=== PATIENT | male | born 1950 | race Caucasian/White ===

== ENCOUNTER 2020-05-06 09:59 | Outpatient (REF) | payer MEDICARE, SELFPAY ==
--- NOTE | 2020-05-06 | US_ITS ---
EXAMINATION: US VENOUS ULTRASOUND WITH DOPPLER LOWER EXTREMITY, LEFT CLINICAL INFORMATION: Follow-up DVT left lower extremity COMPARISON: None TECHNIQUE: Ultrasound of the deep veins is performed from the hip to the calf with compression sonography and color and pulse Doppler assessment. Spectral analysis with color-flow imaging is performed. FINDINGS: There is a nonocclusive thrombus in the distal femoral vein, popliteal vein, and proximal portions of the posterior tibial and peroneal veins of the calf. The more distal aspect of the posterior tibial veins and peroneal veins are patent. The common femoral vein, the proximal and midportion of the femoral vein are patent. US/US venous duplex LE LT IMPRESSION: Study POSITIVE for deep vein thrombosis. Occlusive thrombus in the distal femoral vein, popliteal vein, and the proximal posterior tibial and peroneal veins of the calf. This critical result was discussed with at 11:00 AM on 05/06/2020 and it was ascertained that the content and urgency of the report was understood at the time of direct communication.
== END 2020-05-06 10:00 | disposition home or self-care (01) ==
LOC: HO.HMGCX 09:59
DX: I82.412 Acute embolism and thrombosis of left femoral vein (principal); I82.432 Acute embolism and thrombosis of left popliteal vein; I82.442 Acute embolism and thrombosis of left tibial vein; I82.452 Acute embolism and thrombosis of left peroneal vein
CPT/HCPCS: 93971

== ENCOUNTER 2020-05-12 16:18 | Outpatient (REF) | payer MEDICARE, SELFPAY ==
--- NOTE | 2020-05-12 | XR_ITS ---
EXAMINATION: XR CHEST CLINICAL INFORMATION: Covid 19. Congestion. COMPARISON: None TECHNIQUE: 2 views of the chest were obtained. FINDINGS: Patchy bilateral multifocal airspace opacities in the lungs consistent with patient history of Covid 19. The heart size is enlarged. There is no significant central pulmonary vascular congestion. There is no significant pleural effusion XR/XR chest 2V IMPRESSION: Patchy bilateral multifocal airspace opacities
== END 2020-05-12 16:19 | disposition home or self-care (01) ==
LOC: HO.XRAY 16:18
DX: Z13.89 Encounter for screening for other disorder (principal)
CPT/HCPCS: 71046

== ENCOUNTER 2020-05-12 16:51 | Outpatient (REF) | payer MEDICARE, SELFPAY | END 2020-05-12 16:52 | disposition home or self-care (01) | LOC: HO.LAB 16:51 | PROVIDERS: Visit Provider Internal Medicine | DX: Z20.828 Contact with and (suspected) exposure to other viral communicable diseases (principal) | CPT/HCPCS: 71046; C9803; U0003 ==

== ENCOUNTER 2020-08-06 06:26 | Day surgery (SDC) | payer MEDICARE, SELFPAY ==
[2020-07-31 10:38] VITALS: BMI 33.8
--- NOTE | 2020-08-05 08:16 | HO.ANESPROP2 ---
Documented by User: Layla Nicole 08/05/20 08:21 HPI - Anesthesia Eval Consult details Narrative: 70yo M for Upper Endoscopy and Colonoscopy Eliquis for LLE DVT PMFSH Past Medical History Medical History Depression DVT (deep venous thrombosis) Elevated cholesterol GERD (gastroesophageal reflux disease) History of COVID-19 HTN (hypertension) Hx of irritable bowel syndrome On anticoagulant therapy Surgical History Surgical History H/O colonoscopy History of esophagogastroduodenoscopy (EGD) Hx of cholecystectomy Social History Social History Are you a primary child care development specialist to a significant other at home: No Do you presently have visiting nurse or other home services: No Smoking Status: Never smoker Use of substances other than those prescribed or required for medical reasons: No Advance Directives Information Provided: No Recently lost weight without trying: No Meds Allergies Allergy/AdvReac Type Severity Reaction Status Date / Time No Known Allergies Allergy Verified 07/30/20 14:56 Home Medications Medication Instructions Recorded Confirmed Last Taken Type apixaban [Eliquis] 1 tab PO BID 07/31/20 07/31/20 08/02/20 History dicyclomine 1 tab PO DAILY PRN 07/31/20 07/31/20 Unknown History diphenoxylate-atropine 1 tab PO QID PRN 07/31/20 07/31/20 Unknown History lisinopril 1 tab PO QPM 07/31/20 07/31/20 Unknown History metoprolol succinate 1 tab PO DAILY 07/31/20 07/31/20 08/06/20 History pantoprazole 1 tab PO QPM 07/31/20 07/31/20 Unknown History sertraline 1.5 tab PO BEDTIME 07/31/20 07/31/20 Unknown History simvastatin 1 tab PO DAILY 07/31/20 07/31/20 Unknown History Exam Exam Date and Time: August 05, 2020 0816 Height,Weight and Vital Signs: Height 5 ft 10 in Weight 107.048 kg Assessment and Plan Assessment Anesthesia Assessment: Chart Reviewed Documented by User: Zee Bianchi 08/06/20 07:24 [facility] Past Medical History Medical History Depression DVT (deep venous thrombosis) Elevated cholesterol GERD (gastroesophageal reflux disease) History of COVID-19 HTN (hypertension) Hx of irritable bowel syndrome On anticoagulant therapy Surgical History Surgical History H/O colonoscopy History of esophagogastroduodenoscopy (EGD) Hx of cholecystectomy Social History Social History Are you a primary child care development specialist to a significant other at home: No Do you presently have visiting nurse or other home services: No Smoking Status: Never smoker Use of substances other than those prescribed or required for medical reasons: No Advance Directives Information Provided: No Recently lost weight without trying: No Meds Allergies Allergy/AdvReac Type Severity Reaction Status Date / Time No Known Allergies Allergy Verified 07/30/20 14:56 Home Medications Medication Instructions Recorded Confirmed Last Taken Type apixaban [Eliquis] 1 tab PO BID 07/31/20 07/31/20 08/02/20 History dicyclomine 1 tab PO DAILY PRN 07/31/20 07/31/20 Unknown History diphenoxylate-atropine 1 tab PO QID PRN 07/31/20 07/31/20 Unknown History lisinopril 1 tab PO QPM 07/31/20 07/31/20 Unknown History metoprolol succinate 1 tab PO DAILY 07/31/20 07/31/20 08/06/20 History pantoprazole 1 tab PO QPM 07/31/20 07/31/20 Unknown History sertraline 1.5 tab PO BEDTIME 07/31/20 07/31/20 Unknown History simvastatin 1 tab PO DAILY 07/31/20 07/31/20 Unknown History Exam Airway Mallampati Class: II TM Dist: >3cm Neck ROM: Full Assessment and Plan Assessment Anesthesia Assessment: Anesthesia Plan Discussed and Chart Reviewed Final Anesthetic Review NPO: Yes ASA Class: II Final Preanesthetic Review: No Changes in Pt Med Stat, Meds/Allgs Chart Reviewed, Consent Obtained/Reviewed and Anes Risks/Benef Reviewed Patient Risk: Low Procedure Risk: Low Assessment/Block/Sedation in SS: Assess/Block/Sedation-SS Anesthetic Plan Anesthetic Plan: GA Disposition: Standard PACU
[2020-08-06 06:36] VITALS: BP 133/98; PULSE 104; RESP 18; O2SAT 98
[2020-08-06] MEDS: Lactated Ringers 1,000 ML 100 ML IVCONT (06:59)
[2020-08-06 08:33] VITALS: BP 86/59; PULSE 65; RESP 16; TEMP 36.3; O2SAT 99
--- NOTE | 2020-08-06 08:39 | PM.OP ---
Brief Operative Note Date of Service: 08/06/20 Pre-op diagnosis: GERD, Screening, Diarrhea Post-op diagnosis: other (Hiatal hernia, gastric polyps, colon polyps, gastritis) Procedure: EGD with biopsies, Colonoscopy to the cecum and TI with biopsies and biopsy/removal of polyps Surgeon: Shaan Rangel Anesthesia: MAC Estimated blood loss (mL): 4.0 Pathology: other (A. Descending duodenum B. Gastric antrum C. Gastric polyps D. EG Junction at 36cm E. Cecal polyps F. Ascending colon G. Descending colon) Condition: stable Disposition: PACU
[2020-08-06 08:48] VITALS: BP 114/73; PULSE 79; RESP 16; TEMP 36.3; O2SAT 97
--- NOTE | 2020-08-06 09:12 | OP_ITS ---
SURGEON: Shaan Rangel MD INDICATIONS: The patient presents for evaluation of gastroesophageal reflux, colorectal cancer screening, and intermittent diarrhea. Full consent has been obtained from him for both procedures, including risks of bleeding and perforation. PREOPERATIVE DIAGNOSIS: POSTOPERATIVE DIAGNOSIS: PROCEDURE PERFORMED: Esophagogastroduodenoscopy with biopsies, and colonoscopy to the cecum and terminal ileum with biopsy and removal of polyps, and biopsies. ESTIMATED BLOOD LOSS: COMPLICATIONS: ANESTHESIA: Monitored anesthesia care. ASSISTANTS: SPECIMENS: PREOPERATIVE DIAGNOSES: Gastroesophageal reflux, colorectal cancer screening and intermittent diarrhea. POSTOPERATIVE DIAGNOSES: Gastroesophageal reflux, colorectal cancer screening and intermittent diarrhea, hiatal hernia, gastritis, gastric polyps, rule out celiac disease, colon polyps, rule out microscopic colitis, diverticulosis, and internal hemorrhoids. DESCRIPTION OF PROCEDURE: The patient was placed in the left lateral decubitus position. The Olympus video gastroscope was passed in the posterior oropharynx and upper esophagus under direct vision. The scope was passed slowly into the distal esophagus. The gastroesophageal junction appeared at 36 cm. There was a very minimal irregularity consistent with reflux, but no evidence of esophagitis nor definitive evidence of Nelson's mucosa. There was a small hiatal hernia. The scope was advanced to pylorus and the duodenum was cannulated to the descending portion. The duodenum including the bulb was carefully inspected and appeared normal. The biopsies were obtained from the second and third portions of duodenum. The scope was withdrawn back in the stomach. The gastric antrum had some areas of erythema and edema, but no erosions or ulceration. There was good peristalsis. Biopsies were obtained. The scope was retroflexed visualizing the proximal stomach carefully which appeared normal, without any sign of mass or ulceration. There were several hyperplastic appearing gastric polyps. Several of these were biopsied. The scope was straightened out and withdrawn back in the esophagus. Biopsies were obtained at the EG junction at 36 cm. Proximal to this, the esophageal mucosa appeared normal. The scope was withdrawn from the patient. He was turned around for colonoscopy. The digital rectal exam revealed no abnormalities. The Olympus video pediatric colonoscope was entered into the rectum and advanced easily to the cecum. Once in the cecum, I did identify cecal pouch with appendiceal orifice and a normal-appearing ileocecal valve. The terminal ileum was cannulated and appeared normal. The scope was withdrawn back in the colon. The entire cecum was well visualized. There were 2 less than 5 mm polyps in the cecum, which were each biopsied and completely removed with cold biopsy forceps. The scope was then slowly withdrawn assessing all mucosal surfaces carefully. Preparation was excellent. I did not visualize any other polyps, colitis, nor angiodysplasia. Random biopsies were obtained in the ascending and descending colon. There was a moderate amount of sigmoid diverticulosis. In the rectum, scope was retroflexed visualizing internal hemorrhoids, but no other pathology. The rectal mucosa appeared normal. The scope was straightened out and withdrawn from the patient. He tolerated both procedures well and was returned to the recovery area in stable condition. IMPRESSION: 1. Hiatal hernia, gastroesophageal reflux. 2. Gastritis. 3. Gastric polyps. 4. Rule out celiac disease. 5. Colon polyps. 6. Rule out microscopic colitis. 7. Diverticulosis. 8. Internal hemorrhoids. PLAN: The results of biopsies will be checked. He was advised to continue his daily pantoprazole. He was on a twice a day, but I did advise him to decrease it as once a day. He will also continue his dicyclomine and Lomotil as needed for any intermittent symptoms of irritable bowel syndrome and loose stool. If the colon polyps are tubular adenoma, I would recommend a followup colonoscopy in 5 years. If they are only hyperplastic, I would recommend a followup colonoscopy in 10 years. Of note, he had also been advised to stop his metoclopramide when I had met him in the office as well. He was advised to resume his Eliquis tomorrow. He was advised not to use any aspirin and NSAIDs long-term since he is on the Eliquis. This has been discussed with his family. MD DANNI Cantu/DANNA / [id number]
== END 2020-08-06 09:37 | disposition home or self-care (01) ==
PROVIDERS: PCP Family Medicine; Visit Provider Internal Medicine
PROC: (CPT 45380; principal; 2020-08-06 07:30)
DX: Z12.11 Encounter for screening for malignant neoplasm of colon (principal); D12.0 Benign neoplasm of cecum; K57.30 Diverticulosis of large intestine without perforation or abscess without bleeding; K64.8 Other hemorrhoids; K58.9 Irritable bowel syndrome, unspecified; K21.9 Gastro-esophageal reflux disease without esophagitis; K29.50 Unspecified chronic gastritis without bleeding; K31.7 Polyp of stomach and duodenum; K44.9 Diaphragmatic hernia without obstruction or gangrene; I82.402 Acute embolism and thrombosis of unspecified deep veins of left lower extremity; Z79.02 Long term (current) use of antithrombotics/antiplatelets; I10 Essential (primary) hypertension; F41.9 Anxiety disorder, unspecified; Z79.899 Other long term (current) drug therapy; Z86.16 Personal history of COVID-19; Z90.49 Acquired absence of other specified parts of digestive tract
CPT/HCPCS: 45380; 43239; 88305; 88342; J3010

== ENCOUNTER 2020-12-15 10:32 | Outpatient (REF) | payer MEDICARE, SELFPAY ==
[2020-12-15 13:51] LABS: Alanine Aminotransferase 20 U/L (0-40); Anion Gap 12 (12-20); Blood Urea Nitrogen 34 mg/dL (9-16); Carbon Dioxide 24 mmol/L (22-29); Chloride 110 mmol/L (96-108); Cholesterol 142 mg/dL; Estimated Glomerular Filt Rate 53; HDL Cholesterol 46 mg/dL; LDL Cholesterol Calculated 84 mg/dl; Potassium 4.6 mmol/L (3.3-5.1); Sodium 141 mmol/L (135-145); Triglycerides 64 mg/dL
== END 2020-12-15 10:33 | disposition home or self-care (01) ==
LOC: HO.10HDL 10:32
PROVIDERS: Visit Provider Family Medicine
DX: I10 Essential (primary) hypertension (principal); E78.00 Pure hypercholesterolemia, unspecified; Z79.899 Other long term (current) drug therapy
CPT/HCPCS: 36415; 80051; 80061; 82550; 82565; 84460; 84520

== ENCOUNTER 2021-06-09 10:43 | Outpatient (REF) | payer MEDICARE, SELFPAY ==
[2021-06-09 14:16] LABS: Anion Gap 14 (12-20); Blood Urea Nitrogen 32 mg/dL (9-16); Carbon Dioxide 24 mmol/L (22-29); Chloride 108 mmol/L (96-108); Cholesterol 149 mg/dL; Estimated Glomerular Filt Rate 57; HDL Cholesterol 40 mg/dL; LDL Cholesterol Calculated 90 mg/dl; Potassium 4.5 mmol/L (3.3-5.1); Sodium 141 mmol/L (135-145); Triglycerides 96 mg/dL
[2021-06-09 14:39] LABS: Prostate Specific Antigen Scr 1.78 ng/mL (<0.05-4.0)
== END 2021-06-09 10:44 | disposition home or self-care (01) ==
LOC: HO.10HDL 10:43
PROVIDERS: Visit Provider Family Medicine
DX: Z12.5 Encounter for screening for malignant neoplasm of prostate (principal); I10 Essential (primary) hypertension; E78.00 Pure hypercholesterolemia, unspecified; N40.0 Benign prostatic hyperplasia without lower urinary tract symptoms; Z79.899 Other long term (current) drug therapy
CPT/HCPCS: 36415; 80051; 80061; 82565; 84153; 84520

== ENCOUNTER 2022-01-15 10:18 | Outpatient (REF) | payer MEDICARE, SELFPAY ==
[2022-01-15 11:46] LABS: Fibrinogen 560 MG/DL (259-690); INTERNATIONAL NORM RATIO 1.2 (0.9-1.1); Prothrombin Time 13.7 SEC (10.0-13.1)
[2022-01-15 11:49] LABS: Partial Thromboplastin Time 34.7 SEC (26.0-36.4)
[2022-01-15 12:27] LABS: Alanine Aminotransferase 20 U/L (0-40); Anion Gap 15 (12-20); Aspartate Amino Transferase 16 U/L (5-37); Blood Urea Nitrogen 26 mg/dL (9-16); Carbon Dioxide 23 mmol/L (22-29); Chloride 106 mmol/L (96-108); Estimated Glomerular Filt Rate > 60; Potassium 4.5 mmol/L (3.3-5.1); Sodium 139 mmol/L (135-145)
[2022-01-18 18:07] LABS: Anti-Thrombin III Antigen 81 % (80-120)
[2022-01-18 18:11] LABS: Homocysteine 11.6 umol/L (<11.4)
[2022-01-18 20:56] LABS: Protein C Activity 104 % (70-180); Protein S Activity rflx Tot&Fr 73 % (70-150)
[2022-01-27 17:07] LABS: Factor V Leiden POSITIVE
== END 2022-01-15 10:19 | disposition home or self-care (01) ==
LOC: HO.10HDL 10:18
PROVIDERS: Visit Provider Family Medicine
DX: I10 Essential (primary) hypertension (principal); E78.00 Pure hypercholesterolemia, unspecified; Z79.899 Other long term (current) drug therapy; I82.409 Acute embolism and thrombosis of unspecified deep veins of unspecified lower extremity
CPT/HCPCS: 80051; 81241; 82550; 82565; 83090; 84450; 84460; 84520; 85301; 85302; 85303; 85305; 85306; 85384; 85610; 85730; 86146; 86147; 86148

== ENCOUNTER 2022-07-14 10:30 | Outpatient (REF) | payer MEDICARE, SELFPAY ==
[2022-07-14 11:20] LABS: Basophils Percent Auto 0.6 % (0-2); Eosinophils Absolute Auto 0.1 X10*3/uL (0.0-0.4); Eosinophils Percent Auto 1.8 % (0-4); Hematocrit 46.8 % (42.0-52.0); Hemoglobin 15.5 g/dl (14.0-18.0); Imm Gran Abs Auto 0.08 X10*3/uL (0.00-0.03); Imm Gran Pct Auto 1.1 % (0.0-0.4); Lymphocytes Absolute Auto 1.1 X10*3/uL (1.2-4.9); Lymphocytes Percent Auto 14.8 % (20-40); MANUAL DIFF FLAG NO; Mean Corpuscular HGB Conc 33.1 g/dl (31.0-36.0); Mean Corpuscular Hemoglobin 30.8 pg (27.0-33.0); Mean Platelet Volume 9.5 fL (9.4-12.4); Monocytes Absolute Auto 0.6 X10*3/uL (0.1-1.2); Monocytes Percent Auto 8.7 % (2-11); Neutrophils Absolute Auto 5.2 x10*3/uL (2.0-8.3); Platelet Count 245 X10*3/uL (160-400); Red Blood Count 5.03 X10*6/uL (4.60-5.80); Red Cell Distribution Width 12.8 % (11.0-16.0); White Blood Count 7.1 X10*3/uL (4.8-10.8)
[2022-07-14 11:59] LABS: Alanine Aminotransferase 23 U/L (0-40); Anion Gap 10 (12-20); Aspartate Amino Transferase 17 U/L (5-37); Blood Urea Nitrogen 31 mg/dL (9-16); Carbon Dioxide 25 mmol/L (22-29); Chloride 111 mmol/L (96-108); Cholesterol 154 mg/dL; Estimated Glomerular Filt Rate 58; Potassium 4.4 mmol/L (3.3-5.1); Sodium 142 mmol/L (135-145)
== END 2022-07-14 10:31 | disposition home or self-care (01) ==
LOC: HO.10HDL 10:30
PROVIDERS: Visit Provider Family Medicine
DX: I10 Essential (primary) hypertension (principal); E78.00 Pure hypercholesterolemia, unspecified; Z79.899 Other long term (current) drug therapy
CPT/HCPCS: 36415; 80051; 82465; 82550; 82565; 84450; 84460; 84520; 85025

== ENCOUNTER 2022-12-29 11:47 | Outpatient (REF) | payer MEDICARE, SELFPAY ==
[2022-12-29 13:30] LABS: MANUAL DIFF FLAG NO
[2022-12-29 13:38] LABS: Basophils Percent Auto 0.4 % (0-2); Eosinophils Absolute Auto 0.1 X10*3/uL (0.0-0.4); Eosinophils Percent Auto 1.4 % (0-4); Hemoglobin 16.1 g/dl (14.0-18.0); Imm Gran Abs Auto 0.08 X10*3/uL (0.00-0.03); Lymphocytes Absolute Auto 1.2 X10*3/uL (1.2-4.9); Lymphocytes Percent Auto 14.3 % (20-40); Mean Corpuscular HGB Conc 32.9 g/dl (31.0-36.0); Mean Corpuscular Volume 94.2 fL (80.0-98.0); Mean Platelet Volume 9.8 fL (9.4-12.4); Monocytes Absolute Auto 0.7 X10*3/uL (0.1-1.2); Monocytes Percent Auto 8.3 % (2-11); Neutrophils Percent Auto 74.6 % (45-73); Platelet Count 251 X10*3/uL (160-400); Red Cell Distribution Width 12.8 % (11.0-16.0); White Blood Count 8.1 X10*3/uL (4.8-10.8)
[2022-12-29 13:46] LABS: Appearance Urine Clear; Color Urine Yellow; Glucose Urine UA Negative (Negative); Leukocyte Esterase Urine Negative (Negative); Nitrite Urine Negative (Negative); Urine Blood Negative (Negative); Urine Ketones Negative (Negative); Urine Protein Negative (Neg-Trace)
[2022-12-29 13:54] LABS: Alanine Aminotransferase 21 U/L (0-40); Albumin Level 4.3 g/dL (3.5-5.0); Alkaline Phosphatase 59 U/L (39-117); Anion Gap 12 (12-20); Aspartate Amino Transferase 14 U/L (5-37); Bilirubin Direct 0.2 mg/dL (0.0-0.5); Bilirubin Total 0.5 mg/dL (0.0-1.0); Blood Urea Nitrogen 32 mg/dL (9-16); Carbon Dioxide 26 mmol/L (22-29); Chloride 108 mmol/L (96-108); Estimated Glomerular Filt Rate > 60; Lipase 15 U/L (8-78); Potassium 4.3 mmol/L (3.3-5.1); Sodium 142 mmol/L (135-145); Total Protein 7.2 g/dL (6.5-8.0)
== END 2022-12-29 11:48 | disposition home or self-care (01) ==
LOC: HO.10HDL 11:47
PROVIDERS: Visit Provider Family Medicine
DX: R10.13 Epigastric pain (principal); I10 Essential (primary) hypertension; E78.00 Pure hypercholesterolemia, unspecified; Z79.899 Other long term (current) drug therapy
CPT/HCPCS: 36415; 80051; 80076; 81003; 82550; 82565; 83690; 84520; 85025

== ENCOUNTER 2023-07-12 09:47 | Outpatient (REF) | payer MEDICARE, SELFPAY ==
[2023-07-12 11:16] LABS: Alanine Aminotransferase 21 U/L (0-40); Anion Gap 12 (12-20); Aspartate Amino Transferase 14 U/L (5-37); Blood Urea Nitrogen 28 mg/dL (9-16); Carbon Dioxide 25 mmol/L (22-29); Chloride 108 mmol/L (96-108); Cholesterol 145 mg/dL (<200); Estimated Glomerular Filt Rate > 60; Glucose Fasting 99 mg/dL (60-99); HDL Cholesterol 40 mg/dL (>40); LDL Cholesterol Calculated 89 mg/dL (<100); Potassium 4.4 mmol/L (3.3-5.1); Sodium 141 mmol/L (135-145); Triglycerides 80 mg/dL (<150)
[2023-07-12 11:34] LABS: Free T4 (Free Thyroxine) 0.82 ng/dL (0.71-1.85); Thyroid Stimulating Hormone 4.85 uIU/mL (0.32-4.0)
== END 2023-07-12 09:48 | disposition home or self-care (01) ==
LOC: HO.10HDL 09:47
PROVIDERS: Visit Provider Family Medicine
DX: I10 Essential (primary) hypertension (principal); E78.00 Pure hypercholesterolemia, unspecified; E66.9 Obesity, unspecified; Z79.899 Other long term (current) drug therapy
CPT/HCPCS: 36415; 80051; 80061; 82550; 82565; 82947; 84439; 84443; 84450; 84460; 84520

== ENCOUNTER 2023-10-31 09:25 | Outpatient (REF) | payer MEDICARE, SELFPAY ==
[2023-10-31 11:42] LABS: Free T4 (Free Thyroxine) 0.86 ng/dL (0.71-1.85); Thyroid Stimulating Hormone 5.46 uIU/mL (0.32-4.0)
== END 2023-10-31 09:26 | disposition home or self-care (01) ==
LOC: HO.10HDL 09:25
PROVIDERS: Visit Provider Family Medicine
DX: E03.9 Hypothyroidism, unspecified (principal)
CPT/HCPCS: 36415; 84439; 84443

== ENCOUNTER 2023-12-05 11:19 | Outpatient (REF) | payer MEDICARE, SELFPAY ==
--- NOTE | ~2023-12-05 | US_ITS ---
EXAMINATION: US THYROID CLINICAL INFORMATION: New hypothyroid. COMPARISON: None available. TECHNIQUE: Linear transducer grayscale and color Doppler examination with attention to the region of the thyroid. FINDINGS: SIZE: Measurements of the thyroid lobes and nodules are given in sagittal, anteroposterior and transverse dimensions respectively. Right Thyroid Lobe: 3.6 x 4.3 x 1.3 cm, volume 3.6 mL. Parenchyma: The gland echotexture is heterogeneous. Thyroid vascularity is normal. Left Thyroid Lobe: 3.7 x 1.3 x 1.8 cm, volume 4.3 mL. Parenchyma: The gland echotexture is heterogeneous. Thyroid vascularity is normal. Isthmus: 0.7 cm in maximum AP dimension. There is a focal area of marked heterogeneity of the thyroid parenchyma in the region of the isthmus, however, discrete margins were not discerned to suggest a discrete thyroid nodule. No discrete, definitive thyroid nodules appreciated. NODES: No lymphadenopathy is seen in the tissue surrounding the thyroid gland. US/US thyroid IMPRESSION: There is a focal area of marked heterogeneity of the thyroid parenchyma in the region of the isthmus, however, discrete margins were not discerned to suggest a discrete thyroid nodule. No discrete, definitive thyroid nodules appreciated. ACR TI-RADS RECOMMENDATION REFERENCE: Ultrasound-guided fine-needle aspiration, followup ultrasound, no further follow up. * TR1 (0 point) and TR2 (2 points): No FNA or follow up. * TR3 (3 points): FNA if more than or equal to 2.5 cm in maximum dimension, followup ultrasound in 1, 3 and 5 years if 1.5 to 2.4 cm in maximum dimension. * TR4 (4-6 points): FNA if more than or equal to 1.5 cm in maximum dimension, followup ultrasound in 1, 2, 3 and 5 years if 1 to 1.4 cm in maximum dimension. * TR5 (more than or equal to 7 points): FNA if more than or equal to 1 cm in maximum dimension, followup ultrasound every year for 5 years if 0.5 to 0.9 cm in maximum dimension. * TR3, TR4 or TR5 nodules that are below the size threshold for followup receive no follow up.
== END 2023-12-05 11:20 | disposition home or self-care (01) ==
LOC: HO.US 11:19
PROVIDERS: PCP Family Medicine; Visit Provider Family Medicine
DX: E03.9 Hypothyroidism, unspecified (principal)
CPT/HCPCS: 76536

== ENCOUNTER 2023-12-23 10:25 | Outpatient (REF) | payer MEDICARE, SELFPAY ==
[2023-12-23 13:02] LABS: Free T4 (Free Thyroxine) 1.04 ng/dL (0.71-1.85); Thyroid Stimulating Hormone 3.69 uIU/mL (0.32-4.0)
[2023-12-24 06:59] LABS: Triiodothyronine T3 Total 92 ng/dL (76-181)
[2023-12-24 09:49] LABS: Thyroid Peroxidase Antibodies <1 IU/mL (<9)
== END 2023-12-23 10:26 | disposition home or self-care (01) ==
LOC: HO.LAB 10:25
PROVIDERS: PCP Family Medicine; Visit Provider Family Medicine
DX: E03.9 Hypothyroidism, unspecified (principal)
CPT/HCPCS: 36415; 84439; 84443; 84480; 86376

== ENCOUNTER 2024-01-31 09:09 | Outpatient (REF) | payer MEDICARE, SELFPAY ==
[2024-01-31 11:03] LABS: Alanine Aminotransferase 22 U/L (0-40); Anion Gap 11 (12-20); Aspartate Amino Transferase 13 U/L (5-37); Blood Urea Nitrogen 25 mg/dL (9-16); Carbon Dioxide 27 mmol/L (22-29); Chloride 106 mmol/L (96-108); Estimated Glomerular Filt Rate > 60; Potassium 4.2 mmol/L (3.3-5.1); Sodium 140 mmol/L (135-145)
[2024-01-31 11:23] LABS: Free T4 (Free Thyroxine) 0.84 ng/dL (0.71-1.85)
== END 2024-01-31 09:10 | disposition home or self-care (01) ==
LOC: HO.10HDL 09:09
PROVIDERS: Visit Provider Family Medicine
DX: E03.9 Hypothyroidism, unspecified (principal); I10 Essential (primary) hypertension; E78.00 Pure hypercholesterolemia, unspecified; Z79.899 Other long term (current) drug therapy
CPT/HCPCS: 36415; 80051; 82550; 82565; 84439; 84443; 84450; 84460; 84520

== ENCOUNTER 2024-10-16 09:59 | Outpatient (REF) | payer MEDICARE, SELFPAY ==
--- OUTSIDE RECORDS SUMMARY | 2024-10-16 10:40 | XMS_ITS | Patient Health Record ---
Author Organization [facility] Address [address] [place] [id number] Care Team Providers Care [employer] Name Role Phone Jonah FERNANDEZ, Adan Primary Care Provider Unavailab Shaan Velasquez [phone] Reason For Referral No Information Medications Medication SIG (Take, Route, Frequency, Duration) Notes Start Date End Date Status Pantoprazole Sodium 40 MG 1 tablet Orall y Once a day Active Simvastatin 80 MG 1 tablet in the even ing Orally Once a day for 30 day(s) Active Lisinopril 5 MG 1 tablet Orally Once a day for 30 day(s) Active Metoprolol Succinate ER 50 MG 1 tablet Orally Once a day for 30 day(s) Active Sertraline HCl 100 MG 1 and 1/2 tablet O rally Once a day Active Eliquis 5 MG as directed Orally bid Active Dicyclomine HCl 20 MG 1 tablet Orally 1 QD Active Diphenoxylate-Atropine 2.5-0.025 MG 1 tablet as needed Orally Four times a day Active Immunizations Vaccine Route Administration Date Status Comme nts Influenza Unknown 06/25/2020 Refused Social History Tobacco Use: Social History Observation Description Date Details (start date - stop date) Never Smoker NA - NA Tobacco Use/Smoking Question Answer Notes Patient is a nonsmoker Alcohol Screen Question Answer Notes Did you have a drink containing alcohol in the p ast year? No Points 0 Interpretation Negative Section Notes: Nonsmoker; very occasional o ne beer Problems Problem Type SNOMED Code ICD Code Onset Dates Problem Status W/U Status Risk Notes Problem Irritable bowel syndrome (18628598) Irritable bowel syndrome (K58.9) Active confirmed Problem Screening for malignant neoplasm of colon (710315410) Encounter for screening for malignant neoplasm of colon (Z12.11) Active confirmed Problem Gastroesophageal reflux disease (640996492) GERD (gastroesopha geal reflux disease) (K21.9) Active confirmed Plan Of Treatment Pending Test Test Name Order Date Pathology 08/06/2020 Future Test Test Name Order Date UPPER GI ENDOSCOPY 06/25/2020 COLONOSCOPY 06/25/2020 Insurance Providers Payer Name Payer Address Payer Phone Subscriber Number Group Number Insured Name Patient Relationship to Insured Coverage Start Date Coverage End Date [place] [address] [place] [phone] [id number] HENRIETTA YODER Self - patient is the insured [employer] ATTN CLAIMS [address] [place] [address] [id number] HENRIETTA YODER Self - patient is the insured Medical (General) History Medical History History ICD Code Hypertension DVT in LLE 03/2020 Depression Denies [place],DM,CVA,Lung disease,renal dise ase Neg colonoscopy age 52 that was negative --Dr. Pérez GERD Hyperlipidemia IBS + COVID test in 04/2020 Surgical History Surgery Date(Month/Year) Cholecystectomy
[2024-10-16 13:36] LABS: Alanine Aminotransferase 28 U/L (0-40); Anion Gap 11 (12-20); Aspartate Amino Transferase 18 U/L (5-37); Blood Urea Nitrogen 28 mg/dL (9-16); Carbon Dioxide 26 mmol/L (22-29); Chloride 107 mmol/L (96-108); Estimated Glomerular Filt Rate > 60; Potassium 4.3 mmol/L (3.3-5.1); Sodium 140 mmol/L (135-145)
[2024-10-16 13:52] LABS: Free T4 (Free Thyroxine) 1.02 ng/dL (0.71-1.85); Thyroid Stimulating Hormone 4.26 uIU/mL (0.32-4.0)
== END 2024-10-16 10:00 | disposition home or self-care (01) ==
LOC: HO.10HDL 09:59
PROVIDERS: Visit Provider Family Medicine
DX: I10 Essential (primary) hypertension (principal); E03.8 Other specified hypothyroidism; E78.00 Pure hypercholesterolemia, unspecified
CPT/HCPCS: 36415; 80051; 82550; 82565; 84439; 84443; 84450; 84460; 84520

== ENCOUNTER 2025-01-29 10:59 | Outpatient (AMB) | payer MEDICARE, SELFPAY ==
--- NOTE | 2025-01-29 11:02 | A.OFFPC_ITS ---
Vital Signs 01/29/25 11:10 Height 5 ft 11 in Weight 117.027 kg BMI 36.0 BP 102/80 Respiration 16 Pulse 95 Pulse Source Pulse Oximeter Temp 95.7 F L Temp Source Temporal Artery Scan Pulse Oximetry (%) 97 Oxygen Delivery Method Room Air Intake Visit Reasons: 3 MO F/UP - ROHIT PT International Coordinator Required: No Accompanied by: Self / Same As Patient Allergies No Known Allergies Allergy (Verified 01/29/25 11:02) Medication List - Last Reconciled 01/29/25 by MERVAT Hardin apixaban (Eliquis) 5 mg PO BID B-complex with vitamin C 1 tab PO DAILY buspirone 5 mg PO BID coenzyme Q10 (Ultra CoQ10) 75 mg PO DAILY levothyroxine 50 mcg PO DAILY lisinopril 1 tab PO QPM magnesium citrate,mag oxide mg PO metoprolol succinate ER 1 tab PO DAILY pantoprazole 1 tab PO QPM sertraline 1.5 tabs PO BEDTIME simvastatin 40 mg PO BEDTIME Tobacco use date assessed: 01/29/25 Fall risk assessment: No Falls in past year Last assessed Fall Risk: 01/29/25 Dental Screening Dental Screen Date: 01/29/25 Did you have a dental visit in the last 12 months?: Yes Did you have a dental problem in the last 6 months where you did not have access to dental care?: No Was dental information given to patient?: No HPI HPI Comments History of Present Illness Details 74-year-old male with history of left lo wer extremity DVT, factor 5 laden, GERD, hyperlipidemia, hypertension, depression/anxiety presenting to the office today for management of chronic conditions and to establish care. HTN- metoprolol, lisinopril. BPs at home WNL. BP in the office today 102/80, 108/80 on recheck Hypothyroidism- on Levothyroxine. TSH has been slightly elevated, normal free T4 Factor V Leiden- DVT LLE 2019. On eliquis bid. Denies bleeding episodes GERD- pantoprazole 40mg daily Anxiety- well managed with BuSpar and sertraline Concerns: Changes in moles on the right forearm. Has had small lesion on the forearm ongoing since childhood, but recently has grown in size and has changed colors. Health maintenance: Last colonoscopy 07/2020 with 5 year follow-up advised due to tubular adenoma. Dr. Rangel ROS: General: No fevers, malaise, unintentional weight loss HEENT: No blurred vision, diplopia. No sore throat, nasal congestion, rhinorrhea, sinus pain, ear pain Cardiovascular: No chest pain, palpitations, or leg edema Respiratory: No shortness of breath, wheezing, cough GI: No abdominal pain, nausea, vomiting, diarrhea, constipation, melena, hematochezia : No dysuria, hematuria, increased urinary frequency, decreased urinary output MSK: No myalgia, back pain Neuro: No headaches, weakness, paresthesias Skin: See HPI EXAM: Constitutional - Awake and Alert, No apparent distress Eyes - PERRL Cardiovascular - S1S2, RRR, No edema Respiratory - Normal lung expansion, Normal respiratory effort, No respiratory distress, CTA bilaterally Extremities - no calf tenderness bilaterally, no swelling Skin - Warm/Dry. 5mm nevus R forearm with atypical coloration, round Neurological - Alert & oriented x3 Psychological - Appropriate affect [facility] Medical History (Updated 01/29/25 @ 13:11 by MERVAT Hardin) Factor 5 Leiden mutation, heterozygous Obesity (BMI 30-39.9) Hx of irritable bowel syndrome DVT (deep venous thrombosis) Depression GERD (gastroesophageal reflux disease) On anticoagulant therapy Elevated cholesterol HTN (hypertension) History of COVID-19 Surgical History Hx of cholecystectomy History of esophagogastroduodenoscopy (EGD) H/O colonoscopy Social History Housing: House Are you a primary technical healthcare consultant to a significant other at home: No Do you presently have visiting nurse or other home services: No Patient Tobacco Use Status: Never used Tobacco e-Cigarette/Vaping Use: Never Used service: No Current occupational status: retired Cognitive needs: No Hearing needs: No Vision needs: Yes (Bifocal) Physical exam (Primary Care) Vital Signs: Last Vital Signs Temp 95.7 F L 01/29/25 11:10 Pulse 95 01/29/25 11:10 Resp 16 01/29/25 11:10 BP 102/80 01/29/25 11:10 Pulse Ox 97 01/29/25 11:10 Oxygen Delivery Method Room Air 01/29/25 11:10 BMI result Body Mass Index 36.0 Tobacco/Smoking Status: Tobacco use Status Tobacco use date assessed 01/29/25 01/29/25 11:13 Patient Tobacco Use Status Never used Tobacco 01/29/25 11:13 e-Cigarette/Vaping Use Never Used 01/29/25 11:13 Coding Level of Care Code New Pt Level 4 (35291) Complex EM visit Add On G2211 Diagnoses HTN (hypertension) I10 Elevated cholesterol E78.00 DVT (deep venous thrombosis) I82.409 GERD (gastroesophageal reflux disease) K21.9 Factor 5 Leiden mutation, heterozygous D68.51 Assessment & Plan Assessment & Plan (1) HTN (hypertension): Code(s): I10 - Essential (primary) hypertension Category: Medical Plan: Low normal. Will discontinue lisinopril 5 mg daily. Continue metoprolol. Advised to check blood pressures at home and contact the office if blood pressures are elevated above 140/90. Low-sodium diet (2) Elevated cholesterol: Code(s): E78.00 - Pure hypercholesterolemia, unspecified Category: Medical Plan: Lipid panel ordered. Continue simvastatin 40 mg daily along with diet low in saturated fats and highly processed foods (3) DVT (deep venous thrombosis): Comment: LL-taking eliquis Code(s): I82.409 - Acute embolism and thrombosis of unspecified deep veins of unspecified lower extremity Category: Medical Plan: Continue Eliquis-given factor 5 laden, lifelong anticoagulation (4) GERD (gastroesophageal reflux disease): Code(s): K21.9 - Gastro-esophageal reflux disease without esophagitis Category: Medical Plan: Continue pantoprazole (5) Factor 5 Leiden mutation, heterozygous: Code(s): D68.51 - Activated protein C resistance Category: Medical Plan: Continue Eliquis Plan Labs to be completed today. Follow up in the office in 6 months with labs completed prior to visit. Referred to Dermatology due to atypical nevus. Orders: Orders Complete Blood Count Auto Diff Today E66.9 - Obesity, unspecified, E78.00 - Pure hypercholesterolemia, unspecified, I10 - Essential (primary) hypertension, I82.409 - Acute embolism and thrombosis of unspecified deep veins of unspecified lower extremity Lipid Panel Today E66.9 - Obesity, unspecified, E78.00 - Pure hypercholesterolemia, unspecified, I10 - Essential (primary) hypertension, I82.409 - Acute embolism and thrombosis of unspecified deep veins of unspecified lower extremity TSH reflex Free T4 Today E66.9 - Obesity, unspecified, E78.00 - Pure hyp ercholesterolemia, unspecified, I10 - Essential (primary) hypertension, I82.409 - Acute embolism and thrombosis of unspecified deep veins of unspecified lower extremity Basic Metabolic Panel 6 Months E78.00 - Pure hypercholesterolemia, unspecified, I10 - Essential (primary) hypertension, I82.409 - Acute embolism and thrombosis of unspecified deep veins of unspecified lower extremity, K21.9 - Gastro- esophageal reflux disease without esophagitis Lipid Panel 6 Months E78.00 - Pure hypercholesterolemia, unspecified, I10 - Essential (primary) hypertension, I82.409 - Acute embolism and thrombosis of unspecified deep veins of unspecified lower extremity, K21.9 - Gastro-esophageal reflux disease without esophagitis TSH reflex Free T4 6 Months E78.00 - Pure hypercholesterolemia, unspecified, I10 - Essential (primary) hypertension, I82.409 - Acute embolism and thrombosis of unspecified deep veins of unspecified lower extremity, K21.9 - Gastro- esophageal reflux disease without esophagitis Basic Metabolic Panel Today E66.9 - Obesity, unspecified, E78.00 - Pure hypercholesterolemia, unspecified, I10 - Essential (primary) hypertension, I82.409 - Acute embolism and thrombosis of unspecified deep veins of unspecified lower extremity Liver Panel 6 Months E78.00 - Pure hypercholesterolemia, unspecified, I10 - Essential (primary) hypertension, I82.409 - Acute embolism and thrombosis of unspecified deep veins of unspecified lower extremity, K21.9 - Gastro-esophageal reflux disease without esophagitis Complete Blood Count Auto Diff 6 Months E78.00 - Pure hypercholesterolemia, unspecified, I10 - Essential (primary) hypertension, I82.409 - Acute embolism and thrombosis of unspecified deep veins of unspecified lower extremity, K21.9 - Gastro-esophageal reflux disease without esophagitis Prostate Specific Antigen 6 Months E78.00 - Pure hypercholesterolemia, unspecified, I10 - Essential (primary) hypertension, I82.409 - Acute embolism and thrombosis of unspecified deep veins of unspecified lower extremity, K21.9 - Gastro-esophageal reflux disease without esophagitis Referrals Dermatology Referral D22.9 - Melanocytic nevi, unspecified, L91.8 - Other hypertrophic disorders of the skin Medications: Changed From pantoprazole 1 tab PO QPM To pantoprazole 40 mg PO QAM Patient Instructions: Take pantoprazole 40mg in the AM about 30-45 minutes before eating STOP lisinopril 5mg. Continue metoprolol. Check blood pressures. The goal is less than 140/90. If either number falls above this threshold contact the office and we can resume the lisinopril
[2025-01-29 11:10] VITALS: BP 102/80; PULSE 95; RESP 16; TEMP 35.4; O2SAT 97; BMI 36.0
--- OUTSIDE RECORDS SUMMARY | 2025-01-29 13:17 | XMS_ITS | Patient Health Record ---
Author Organization [facility] [address] Address [address] [place] [address] Care Team Providers Care Media Relations Associate Name Role Phone Farhat FERNANDEZ, Chantal Primary Care Provider Vandana Willis Unavailable [phone] Reason For Referral No Information Medications Medication SIG (Take, Route, Frequency, Duration) Notes Start Date End Date Status Simvastatin 80 MG 1 tablet in the even ing Orally Once a day Active Metoprolol Succinate ER 50 MG 1 tablet Orally Once a day Active Metoclopramide HCl 10 MG Orally Active Pantoprazole Sodium 40 MG 1 tablet Orall y Once a day Active Sertraline HCl 100 MG 1 tablet Orally On ce a day Active Lisinopril 5 MG 1 tablet Orally Once a day Active Social History Tobacco Use: Social History Observation Description Date Details (start date - stop date) Never Smoker NA - NA Tobacco Use/Smoking Question Answer Notes Are you a: nonsmoker Additional Findings: Tobacco Non-User Aggressive non-smoker Alcohol Screen Question Answer Notes Did you have a drink contain ing alcohol in the past year? Yes How often did you have a dri nk containing alcohol in the past year? 2 to 4 times a month (2 points) Points 2 Interpretation Negative Tobacco use other than smoking: Question Answer Notes Are you an other tobacco user? No Plan Of Treatment No Information Insurance Providers Payer Name Payer Address Payer Phone Subscriber Number Group Number Insured Name Patient Relationship to Insured Coverage Start Date Coverage End Date [facility] [employer] [address] [place] [address] [phone] [id number] Marco Fisher Self - patient is the insured Medical (General) History Medical History History ICD Code Anxiety CAD (Cholesterol) Depression Gall bladder problems Headaches Migraines High blood pressure Measles Mumps Chicken pox Surgical History Surgery Date(Month/Year) gall bladder removal 1992
--- OUTSIDE RECORDS SUMMARY | 2025-01-29 13:18 | XMS_ITS | Patient Health Record ---
Author Organization [facility] Address [address] [place] [address] Care Team Providers Care Hse Manager Name Role Phone Jonah (RETIRED) Adan FERNANDEZ Primary Care Provider Unavailable Shaan Rangel Unavailable [phone] Reason For Referral No Information Medications Medication [...] Status Risk Notes Problem Irritable bowel syndrome (05142361) Irritable bowel syndrome (K58.9) Active confirmed Problem Screening for malignant neoplasm of colon (327880988) Encounter for screening for malignant neoplasm of colon (Z12.11) Active confirmed Problem Gastroesophageal reflux disease (146777817) GERD (gastroesopha geal reflux disease) (K21.9) Active confirmed Plan Of Treatment Pending Test Test Name Order Date Pathology 08/06/2020 Future Test Test Name Order Date UPPER GI ENDOSCOPY 06/25/2020 COLONOSCOPY 06/25/2020 Insurance Providers Payer Name Payer Address Payer Phone Subscriber Number Group Number Insured Name Patient Relationship to Insured Coverage Start Date Coverage End Date MEDICARE OF [place] [address] [place] [address] [phone] [id number] HENRIETTA YODER Self - patient is the insured [employer] CLAIMS [address] [place] [address] [phone] [id number] HENRIETTA YODER Self - patient is the insured Medical (General) History Medical History History ICD Code Hypertension DVT in LLE 03/2020 Depression Denies DE,DM,CVA,Lung disease,renal dise ase Neg colonoscopy age 52 that was negative --Dr. Pérez GERD Hyperlipidemia IBS + COVID test in 04/2020 Surgical History Surgery Date(Month/Year) Cholecystectomy
== END 2025-01-29 11:44 | disposition home or self-care (01) ==
LOC: HO.HMCHD 11:00
PROVIDERS: PCP Family Medicine; Visit Provider Physician Assistant
DX: I10 Essential (primary) hypertension (principal); E78.00 Pure hypercholesterolemia, unspecified; I82.409 Acute embolism and thrombosis of unspecified deep veins of unspecified lower extremity; K21.9 Gastro-esophageal reflux disease without esophagitis; D68.51 Activated protein C resistance

== ENCOUNTER → 2025-01-29 10:59 | Outpatient (BNVA) | payer MEDICARE, SELFPAY | PROVIDERS: PCP Family Medicine; Visit Provider Physician Assistant | DX: I10 Essential (primary) hypertension (principal); E78.00 Pure hypercholesterolemia, unspecified; K21.9 Gastro-esophageal reflux disease without esophagitis; D68.51 Activated protein C resistance; E03.9 Hypothyroidism, unspecified; F41.9 Anxiety disorder, unspecified; Z86.718 Personal history of other venous thrombosis and embolism; Z79.01 Long term (current) use of anticoagulants; Z79.899 Other long term (current) drug therapy | CPT/HCPCS: 99202 ==

== ENCOUNTER 2025-01-29 11:48 | Outpatient (REF) | payer MEDICARE, SELFPAY ==
[2025-01-29 13:12] LABS: MANUAL DIFF FLAG NO
[2025-01-29 13:21] LABS: Hematocrit 47.4 % (42.0-52.0); Hemoglobin 15.8 g/dl (14.0-18.0); Imm Gran Abs Auto 0.05 X10*3/uL (0.00-0.03); Imm Gran Pct Auto 0.7 % (0.0-0.4); Lymphocytes Absolute Auto 0.9 X10*3/uL (1.2-4.9); Mean Corpuscular HGB Conc 33.3 g/dl (31.0-36.0); Mean Corpuscular Hemoglobin 31.3 pg (27.0-33.0); Mean Corpuscular Volume 93.9 fL (80.0-98.0); NRBC Abs Auto 0.000 X10*3/uL (0.0-0.012); NRBC Pct Auto 0.0 /100WBC (0.0-0.2); Platelet Count 250 X10*3/uL (160-400); Red Blood Count 5.05 X10*6/uL (4.60-5.80); White Blood Count 7.6 X10*3/uL (4.8-10.8)
[2025-01-29 13:44] LABS: Anion Gap 13 (12-20); Blood Urea Nitrogen 21 mg/dL (9-16); Calcium 9.1 mg/dL (8.4-10.2); Carbon Dioxide 26 mmol/L (22-29); Chloride 107 mmol/L (96-108); Cholesterol 140 mg/dL (<200); Estimated Glomerular Filt Rate > 60; HDL Cholesterol 45 mg/dL (>40); Potassium 4.3 mmol/L (3.3-5.1); Sodium 142 mmol/L (135-145); Triglycerides 123 mg/dL (<150)
== END 2025-01-29 11:49 | disposition home or self-care (01) ==
LOC: HO.10HDL 11:48
PROVIDERS: Visit Provider Physician Assistant
DX: I10 Essential (primary) hypertension (principal); E78.00 Pure hypercholesterolemia, unspecified; E66.9 Obesity, unspecified; I82.409 Acute embolism and thrombosis of unspecified deep veins of unspecified lower extremity
CPT/HCPCS: 36415; 80048; 80061; 84443; 85025